=== PATIENT | female | born 1965 | race Asian ===

== ENCOUNTER 2018-10-28 07:38 | Emergency (ER) | payer MEDICAID ==
[~2018-10-28] VITALS: Ht 162.6 cm; Wt 63.5 kg
--- NOTE | 2018-10-28 07:50 | NUR ---
Placed in room 5. Placed on monitoring analyst, blood pressure machine and pulse oximeter. To gown for exam. Side rails up. Report given to Adrianna HINOJOSA.
[2018-10-28 07:51] VITALS: BP_SYST 217
--- NOTE | 2018-10-28 07:55 | NUR ---
Patient presented to ER with nausea and vomiting. Patient needed assistance by wheel chair in ER parking lot, vomit visable in personal vehicle. Patient has very little effort when asked to move. Family stated Pt had headache at 0100 then nausea & vomiting, pattient slept for 2 hours then a wake with nausea and vomiting.family brought pt to ER
--- NOTE | 2018-10-28 07:56 | NUR ---
Patient brought in by and daughter. Daughter of patient stated pt was not resonding in romanian, only in Hebrew. Patient presented lathargic but arousable with low voice, resonded by stating name, and age and location. of pt stated pt has no Health Hx.
--- NOTE | 2018-10-28 07:57 | NUR ---
ER Dr. Velez at bedside examining patient.
[2018-10-28 08:22] LABS: BASOPHILS # (AUTO) 0.1 K/uL (0.0-0.2); BASOPHILS % (AUTO) 0.9 % (0.0-2.0); EOSINOPHILS % (AUTO) 0.3 % (0.0-4.0); HEMATOCRIT 43.4 % (36-48); HEMOGLOBIN 14.5 g/dL (12.0-16.0); LYMPHOCYTES # (AUTO) 1.5 K/uL (1.0-5.5); LYMPHOCYTES % (AUTO) 12.3 % (20.5-51.5); MEAN CORPUSCULAR HEMOGLOBIN 28 pg (27-31); MEAN CORPUSCULAR HGB CONC 33 % (32-36); MEAN CORPUSCULAR VOLUME 84 fL (79.0-98.0); MONOCYTES # (AUTO) 0.3 K/uL (0.0-1.0); MONOCYTES % (AUTO) 2.1 % (1.7-9.3); NEUTROPHILS # (AUTO) 10.1 K/uL (1.8-7.7); NEUTROPHILS % (AUTO) 84.4 % (40.0-70.0); PLATELET COUNT (AUTO) 392 K/uL (130-430); RED BLOOD CELL COUNT(AUTO) 5.15 MIL/uL (4.2-6.2); WHITE BLOOD COUNT (AUTO) 11.9 K/uL (4.8-10.8)
--- NOTE | 2018-10-28 08:25 | NUR ---
# 14 FR Pimentel catheter with use of sterile technique. Immediate return of 60 cc pale yellow urine noted. Bedside drainage bag placed below level of bladder. Urine sample collected and sent to lab. Pt tolerated procedure well. Patient arrived with pimentel in place, changed due to standard of practice prior to admission. Patient unable to toilet self.
[2018-10-28 08:30] LABS: ANION GAP 9 (5-15); CALCIUM 9.8 mg/dL (8.4-11.0); CHLORIDE 105 mmol/L (98-107); GLUCOSE 145 mg/dL (70-99); POTASSIUM 3.4 mmol/L (3.5-5.1); SODIUM SERUM 140 mmol/L (136-145); UREA NITROGEN, BLOOD 14 mg/dL (8-21)
[2018-10-28] MEDS ORDERED: LABETALOL 100 MG/ 20ML VIAL IVP ONE ×3 (08:30→09:45)
[2018-10-28] MEDS ORDERED: DEXAMETHASONE SOD PHOSPHATE 10 MG/ML VIAL IVP ONE (08:30)
[2018-10-28 08:32] LABS: GFR AFRICAN AMERICAN 75 mL/min (>90)
[2018-10-28 08:34] LABS: PROTHROMBIN TIME 10.1 SECS (9.5-12.5)
[2018-10-28 08:35] LABS: ALANINE AMINOTRANSFERASE 19 U/L (12-78); ALBUMIN 3.9 g/dL (3.4-4.8); ALCOHOL, BLOOD < 3 mg/dL (<10); ASPARTATE AMINOTRANSFERASE 19 U/L (10-37); TOTAL BILIRUBIN 0.5 mg/dL (0.0-1.0)
--- NOTE | 2018-10-28 08:40 | NUR ---
EKG performed at by Adrianna HINOJOSA. Physician given copy of EKG for review.
[2018-10-28 08:43] LABS: BILIRUBIN,URINE NEGATIVE (NEGATIVE); CLARITY/URINE CLEAR (CLEAR); COLOR,URINE YELLOW (YELLOW); GLUCOSE,URINE NEGATIVE (NEGATIVE); KETONES,URINE NEGATIVE (NEGATIVE); LEUKOCYTE ESTERASE ,URINE NEGATIVE (NEGATIVE); NITRITE, URINE NEGATIVE (NEGATIVE); PH,URINE 7.5 (5.0-8.0); PROTEIN URINE TRACE (NEGATIVE); UROBILINOGEN,URINE 0.2 (0.2-1.0)
[2018-10-28 08:55] LABS: BLOOD, URINE TRACE (NEGATIVE)
[2018-10-28 09:00] LABS: BACTERIA,URINE FEW /HPF (None Seen); MUCUS,URINE None Seen /LPF (None Seen); RBC,URINE 0-3 /HPF (0-3); WBC,URINE 0-3 /HPF (0-3)
[2018-10-28 09:05] LABS: BARBITURATE, URINE NEGATIVE (NEG <=200); BENZODIAZEPINE, URINE NEGATIVE (NEG <=150); CANNABINOID, URINE NEGATIVE (NEG <=50); COCAINE, URINE NEGATIVE (NEG <=150); METHAMPHETAMINES SCREEN,URINE NEGATIVE (NEG <=500); OPIATE, URINE NEGATIVE (NEG <=100); PHENCYCLIDINE SCREEN,URINE NEGATIVE (NEG <=25); UR TRICYCLIC ANTIDEPRESSANTS NEGATIVE (NEG <=300); URINE AMPHETAMINE NEGATIVE (NEG <=500); URINE METHADONE NEGATIVE (NEG <=200); URINE OXYCODONE SCREEN NEGATIVE (NEG <=100); URINE PROPOXYPHENE SCREEN NEGATIVE (NEG <=300)
--- NOTE | 2018-10-28 09:30 | NUR ---
Call to Ariane public policy coordinator
--- NOTE | 2018-10-28 09:35 | NUR ---
Per Ariane [facility] Stroke RN, placed call to CCT RN and ambulance service for transport. Dr. Velez made aware
--- NOTE | 2018-10-28 09:48 | NUR ---
Labatolol 20 mg given IVP
[2018-10-28] MEDS ORDERED: NITROPRUSSIDE SODIUM 50 MG in D5W 248 ML IV ONE (10:00)
[2018-10-28] MEDS ORDERED: DEXAMETHASONE SOD PHOSPHATE 10 MG/ML VIAL ONE (10:04)
--- NOTE | 2018-10-28 10:24 | NUR ---
D5w/Nitroprusside IVF started, wioll continue to monitor
--- NOTE | 2018-10-28 10:50 | NUR ---
Note undone in EDM - 10/28/18 at 1140 by [email or web address] Patient to be transferred to [facility]. Is being transferred due to higher level of care. Receiving facility has accepting physician and available space. ER physician has signed transfer form. Patient or responsible green party has agreed to transfer and signed form. Patient belongings inventoried and will be sent with patient. Copy of nursing notes, lab reports, EKG, Physicians Orders and X-rays to be sent with patient. Report called to Ariane HINOJOSA at receiving facility. Receiving physician is . ambulance service has been called for transfer. ETA is 5 min .
--- NOTE | 2018-10-28 11:00 | NUR ---
Report given to Ariane Stroke RN [facility]. tile inspector at bedside
--- NOTE | 2018-10-28 11:04 | NUR ---
Report given at nurses station to Greg CCTRN, ACLS team at bedside for transfer
[2018-10-28 11:15] VITALS: BP_SYST 162
--- NOTE | 2018-10-28 11:15 | NUR ---
Patient to be transferred to [facility] ER. Is being transferred due to higher level of care. Receiving facility has accepting physician and available space. ER physician has signed transfer form. Patient or responsible green party has agreed to transfer and signed form. Patient belongings inventoried and will be sent with patient. Copy of nursing notes, lab reports, EKG, Physicians Orders and X-rays to be sent with patient. Report called to Ariane HINOJOSA at receiving facility. Receiving physician is . ambulance service has been called for transfer. ETA is 15 min.
== END 2018-10-28 11:15 | disposition short-term general hospital (02) ==
LOC: SED 07:38
DX: I62.9 Nontraumatic intracranial hemorrhage, unspecified (principal)
CPT/HCPCS: 36415; 70450; 71045; 80053; 80307; 81000; 84484; 85025; 85610; 85730; 93005; 96361; 96374; 96375; 96376; 99291; G0482; J1100; J3490 ×2; J7050; J7060; 99285